=== PATIENT | female | born 1945 | race Caucasian/White ===

== ENCOUNTER 2019-03-13 12:33 | Inpatient (IN) ==
[2019-03-13] MEDS ORDERED: ONDANSETRON 4 MG/2 ML VIAL IV PRN (16:45)
[2019-03-13] MEDS ORDERED: guaiFENesin/DM ER 600-30 MG TABLET PO PRN (16:45)
[2019-03-13] MEDS ORDERED: DEXTROSE 50% 25 GM/50 ML VIAL IV PRN (16:45)
[2019-03-13] MEDS ORDERED: GLUCAGON 1 MG VIAL IM PRN (16:45)
[2019-03-13] MEDS ORDERED: COLCHICINE 0.6 MG CAPSULE PO PRN (16:51)
[2019-03-13] MEDS ORDERED: CLOPIDOGREL 300 MG TABLET PO ONE (17:28)
[2019-03-13 18:48] LABS: Basophils % 0.6 % (0.0-0.8); Eosinophils # 0.1 10*3/uL (0.0-0.87); Eosinophils % 0.8 % (0.00-10.9); Hematocrit 35.1 VOL% (35.7-47.0); Hemoglobin 11.6 GM/DL (12.0-16.0); Lymphocytes # 2.4 10*3/uL (1.4-4.0); Lymphocytes % 38.2 % (21.3-54.2); Mean Corpuscular Volume 92.6 FL (87-102); Mean Platelet Volume 12.4 FL (9.6-12.0); Monocytes % 9.3 % (1.7-12.7); Neutrophils % 51.1 % (38.7-73.9); Platelet Count 167 T/CUMM (130-400); Red Blood Count 3.79 MC/CUMM (3.8-5.5); Red Cell Distribution Width 12.6 % (9.3-17.3); White Blood Count 6.3 T/CUMM (4-12)
[2019-03-13 19:01] LABS: Calcium 9.6 MG/DL (8.5-10.1); Osmolality,Calculated 285.7 MOS/KG (273-304)
[2019-03-13 19:02] LABS: PT Patient Result 10.5 SECS (9.6-12.2); Partial Thromboplastin Time 24.6 SECS (20.8-36.0)
[2019-03-13] MEDS ORDERED: ENOXAPARIN 30 MG/0.3 ML SYRINGE SUBCUT SCH (21:00)
[2019-03-13] MEDS: ATORVASTATIN 40 MG TABLET PO SCH (21:04)
[2019-03-13] MEDS: ZALEPLON 5 MG CAPSULE PO PRN (21:04)
[2019-03-13] MEDS: ENOXAPARIN 100 MG/ML SYRINGE SUBCUT SCH (21:04)
[2019-03-13] MEDS: PREGABALIN 75 MG CAPSULE PO SCH (21:04)
[2019-03-13] MEDS: INSULIN REGULAR 100 UNIT/ML SUBCUT SCH (21:09)
[2019-03-14 05:36] LABS: Basophils # 0.1 10*3/uL (0.0-0.2); Basophils % 1.2 % (0.0-0.8); Eosinophils # 0.1 10*3/uL (0.0-0.87); Eosinophils % 2.3 % (0.00-10.9); Hematocrit 33.2 VOL% (35.7-47.0); Hemoglobin 10.8 GM/DL (12.0-16.0); Lymphocytes # 2.1 10*3/uL (1.4-4.0); Lymphocytes % 49.5 % (21.3-54.2); Mean Corpuscular HGB Conc 32.5 GM/DL (32-36); Mean Corpuscular Volume 92.5 FL (87-102); Mean Platelet Volume 12.7 FL (9.6-12.0); Monocytes % 10.2 % (1.7-12.7); Neutrophils % 36.8 % (38.7-73.9); Platelet Count 158 T/CUMM (130-400); Red Blood Count 3.59 MC/CUMM (3.8-5.5); Red Cell Distribution Width 12.7 % (9.3-17.3); White Blood Count 4.3 T/CUMM (4-12)
[2019-03-14 06:00] LABS: Calcium 9.2 MG/DL (8.5-10.1); Osmolality,Calculated 294.8 MOS/KG (273-304)
[2019-03-14 06:01] LABS: Atypical Lymphocytes Few; Eosinophils 5 % (0-10); Hypochromasia 1+; Lymphocytes 44 % (20-55); Platelet Estimate Adequate; Segmented Neutrophils 45 % (50-85); Total Cells Counted 100
[2019-03-14 06:26] LABS: Risk Ratio 7.36; Thyroid Stimulating Hormone 1.09 uIU/ml (0.358-3.74); VLDL CHOLESTEROL 74.2 MG/DL
[2019-03-14] MEDS: ASPIRIN EC 81 MG TABLET PO SCH (09:30)
[2019-03-14] MEDS: METOPROLOL SUCCINATE XL 25 MG TABLET PO SCH (09:30)
[2019-03-14] MEDS: PANTOPRAZOLE 40 MG TABLET PO SCH (09:30)
[2019-03-14] MEDS: VENLAFAXINE XR 75 MG CAPSULE PO SCH (09:30)
[2019-03-14] MEDS: PREGABALIN 75 MG CAPSULE PO SCH ×2 (09:30→22:10)
[2019-03-14] MEDS: CHOLECALCIFEROL 1,000 UNIT TABLET PO SCH (09:30)
[2019-03-14] MEDS: CLOPIDOGREL 75 MG TABLET PO SCH (09:30)
[2019-03-14] MEDS: MAGNESIUM OXIDE 400 MG TABLET PO SCH (09:30)
[2019-03-14] MEDS: POLYETHYLENE GLYCOL POWDER 17 GM PACK PO SCH (09:30)
[2019-03-14] MEDS: MULTIVITAMIN (CENTRUM) TABLET PO SCH (09:30)
[2019-03-14] MEDS: INSULIN REGULAR 100 UNIT/ML SUBCUT SCH ×4 (10:18→22:09)
[2019-03-14] MEDS: ENOXAPARIN 100 MG/ML SYRINGE SUBCUT SCH ×2 (13:03→21:02)
[2019-03-14] MEDS: FUROSEMIDE 40 MG/4 ML VIAL IV SCH ×2 (13:03→16:32)
[2019-03-14] MEDS ORDERED: diphenhydrAMINE CAP 25 MG CAPSULE PO ONE (14:03)
[2019-03-14] MEDS: ZALEPLON 5 MG CAPSULE PO PRN (22:10)
[2019-03-14] MEDS: ATORVASTATIN 40 MG TABLET PO SCH ×2 (22:10→22:13)
[2019-03-15] MEDS: INSULIN REGULAR 100 UNIT/ML SUBCUT SCH ×4 (08:01→21:50)
[2019-03-15] MEDS: VENLAFAXINE XR 75 MG CAPSULE PO SCH (08:15)
[2019-03-15] MEDS: METOPROLOL SUCCINATE XL 25 MG TABLET PO SCH (08:16)
[2019-03-15] MEDS: CLOPIDOGREL 75 MG TABLET PO SCH (08:16)
[2019-03-15] MEDS: PANTOPRAZOLE 40 MG TABLET PO SCH (08:16)
[2019-03-15] MEDS: CHOLECALCIFEROL 1,000 UNIT TABLET PO SCH (08:16)
[2019-03-15] MEDS: PREGABALIN 75 MG CAPSULE PO SCH ×2 (08:16→21:51)
[2019-03-15] MEDS: MAGNESIUM OXIDE 400 MG TABLET PO SCH (08:16)
[2019-03-15] MEDS: MULTIVITAMIN (CENTRUM) TABLET PO SCH (08:16)
[2019-03-15] MEDS: ASPIRIN EC 81 MG TABLET PO SCH (08:16)
[2019-03-15] MEDS ORDERED: diphenhydrAMINE CAP 25 MG CAPSULE PO ONE (08:30)
[2019-03-15 08:34] LABS: Calcium 9.8 MG/DL (8.5-10.1); Osmolality,Calculated 285.7 MOS/KG (273-304)
[2019-03-15] MEDS ORDERED: HEPARIN/NACL 0.9% 2 UNITS/ML 1,000 ML IV ONE (08:49)
[2019-03-15] MEDS ORDERED: LIDOCAINE 1% 20 ML VIAL ONE (08:49)
[2019-03-15] MEDS ORDERED: HEPARIN/NACL 0.9% 2 UNITS/ML 500 ML IV ONE (08:58)
[2019-03-15] MEDS ORDERED: MIDAZOLAM 2 MG/2 ML VIAL ONE (09:01)
[2019-03-15] MEDS ORDERED: fentaNYL 100 MCG/2 ML VIAL ONE (09:01)
[2019-03-15] MEDS ORDERED: NITROGLYCERIN DRIP 50 MG/250 ML BOTTLE IV ONE (09:42)
[2019-03-15] MEDS ORDERED: HEPARIN 5,000 UNIT/1 ML VIAL ONE (09:42)
[2019-03-15] MEDS ORDERED: CLOPIDOGREL 300 MG TABLET ONE (09:44)
[2019-03-15] MEDS ORDERED: CLOPIDOGREL 75 MG TABLET ONE (10:33)
[2019-03-15] MEDS ORDERED: SODIUM CHLORIDE 0.9% 1,000 ML IV SCH (11:00)
[2019-03-15] MEDS ORDERED: MORPHINE 10 MG/1 ML VIAL ONE (11:05)
[2019-03-15] MEDS ORDERED: LIDOCAINE 1%/EPI INJ 20 ML VIAL ONE (11:30)
[2019-03-15 12:19] LABS: Apearance,Urine CLEAR (Clear); Bilirubin,Urine Negative (Negative); Blood, Urine Small mg/dL (Negative); Glucose,Urine (UA) 50 mg/dL (Negative); Ketones,Urine Negative (Negative); Mucus,Urine Occasional /LPF (Occasional); Nitrite,Urine Negative (Negative); Protein,Urine 30 MG/DL; RBC,Urine 4 /HPF (0-4); Squamous Epithelial Cell,Urine Occasional /HPF (0-10); Urine Color Yellow (Yellow); Urine Specific Gravity 1.045 (1.001-1.035); Urine Urobilinogen < 2.0 EU/DL (0.2-1.0); WBC,Urine 2 /HPF (0-6)
[2019-03-15] MEDS: POLYETHYLENE GLYCOL POWDER 17 GM PACK PO SCH (12:21)
[2019-03-15 12:34] LABS: Basophils # 0.1 10*3/uL (0.0-0.2); Basophils % 0.6 % (0.0-0.8); Eosinophils # 0.1 10*3/uL (0.0-0.87); Eosinophils % 1.2 % (0.00-10.9); Hematocrit 37.2 VOL% (35.7-47.0); Hemoglobin 12.3 GM/DL (12.0-16.0); Immature Granulocytes % 0.2 %; Immature Granulocytes Absolute 0.02 #; Lymphocytes # 4.4 10*3/uL (1.4-4.0); Lymphocytes % 54.4 % (21.3-54.2); Mean Corpuscular HGB Conc 33.1 GM/DL (32-36); Mean Corpuscular Volume 92.1 FL (87-102); Mean Platelet Volume 12.2 FL (9.6-12.0); Monocytes % 10.1 % (1.7-12.7); Neutrophils % 33.5 % (38.7-73.9); Platelet Count 180 T/CUMM (130-400); Red Blood Count 4.04 MC/CUMM (3.8-5.5); Red Cell Distribution Width 12.8 % (9.3-17.3)
[2019-03-15] MEDS: FUROSEMIDE 40 MG/4 ML VIAL IV SCH ×2 (12:34→17:08)
[2019-03-15] MEDS: amLODIPine 5 MG TABLET PO SCH (12:34)
[2019-03-15] MEDS: ENOXAPARIN 100 MG/ML SYRINGE SUBCUT SCH (12:42)
[2019-03-15 13:08] LABS: Band Neutrophils 2 % (0-10); Eosinophils 1 % (0-10); Lymphocytes 52 % (20-55); Segmented Neutrophils 34 % (50-85); Total Cells Counted 100
[2019-03-15 13:09] LABS: Anisocytosis 1+; Platelet Estimate Normal
[2019-03-15] MEDS: ALBUTEROL/IPRATROPIUM 3 ML NEB RESP TX SCH (20:57)
[2019-03-15] MEDS: ATORVASTATIN 40 MG TABLET PO SCH (21:51)
[2019-03-16] MEDS: ALBUTEROL/IPRATROPIUM 3 ML NEB RESP TX SCH ×7 (00:51→23:50)
[2019-03-16 04:02] LABS: Basophils # 0.1 10*3/uL (0.0-0.2); Basophils % 0.6 % (0.0-0.8); Eosinophils # 0.2 10*3/uL (0.0-0.87); Hematocrit 34.8 VOL% (35.7-47.0); Hemoglobin 11.4 GM/DL (12.0-16.0); Immature Granulocytes % 0.2 %; Immature Granulocytes Absolute 0.02 #; Lymphocytes # 2.2 10*3/uL (1.4-4.0); Lymphocytes % 26.1 % (21.3-54.2); Mean Corpuscular HGB Conc 32.8 GM/DL (32-36); Mean Corpuscular Volume 94.1 FL (87-102); Mean Platelet Volume 12.7 FL (9.6-12.0); Monocytes % 12.4 % (1.7-12.7); Neutrophils % 58.7 % (38.7-73.9); Platelet Count 167 T/CUMM (130-400); White Blood Count 8.4 T/CUMM (4-12)
[2019-03-16 04:17] LABS: Calcium 9.1 MG/DL (8.5-10.1)
[2019-03-16] MEDS ORDERED: ENOXAPARIN 40 MG/0.4 ML SYRINGE SUBCUT SCH (04:43)
[2019-03-16] MEDS: PREGABALIN 75 MG CAPSULE PO SCH ×3 (05:11→20:33)
[2019-03-16] MEDS: FUROSEMIDE 40 MG/4 ML VIAL IV SCH (09:12)
[2019-03-16] MEDS: MAGNESIUM OXIDE 400 MG TABLET PO SCH (09:20)
[2019-03-16] MEDS: VENLAFAXINE XR 75 MG CAPSULE PO SCH (09:20)
[2019-03-16] MEDS: MULTIVITAMIN (CENTRUM) TABLET PO SCH (09:20)
[2019-03-16] MEDS: CLOPIDOGREL 75 MG TABLET PO SCH (09:21)
[2019-03-16] MEDS: amLODIPine 5 MG TABLET PO SCH (09:21)
[2019-03-16] MEDS: CHOLECALCIFEROL 1,000 UNIT TABLET PO SCH (09:21)
[2019-03-16] MEDS: ACETAMINOPHEN 325 MG TABLET PO PRN (09:21)
[2019-03-16] MEDS: METOPROLOL SUCCINATE XL 25 MG TABLET PO SCH (09:21)
[2019-03-16] MEDS: PANTOPRAZOLE 40 MG TABLET PO SCH (09:21)
[2019-03-16] MEDS: POLYETHYLENE GLYCOL POWDER 17 GM PACK PO SCH (09:21)
[2019-03-16] MEDS: ASPIRIN EC 81 MG TABLET PO SCH (09:21)
[2019-03-16] MEDS: INSULIN REGULAR 100 UNIT/ML SUBCUT SCH ×4 (09:22→20:31)
[2019-03-16] MEDS ORDERED: SODIUM CHLORIDE 0.9% 1,000 ML IV SCH (16:30)
[2019-03-16] MEDS: miSOPROStoL 200 MCG TABLET PO SCH ×2 (16:57→20:33)
[2019-03-16] MEDS: ATORVASTATIN 40 MG TABLET PO SCH (20:33)
[2019-03-17] MEDS: ALBUTEROL/IPRATROPIUM 3 ML NEB RESP TX SCH ×5 (03:51→19:07)
[2019-03-17 05:10] LABS: Basophils % 0.6 % (0.0-0.8); Eosinophils # 0.1 10*3/uL (0.0-0.87); Eosinophils % 1.8 % (0.00-10.9); Hematocrit 30.1 VOL% (35.7-47.0); Hemoglobin 9.9 GM/DL (12.0-16.0); Immature Granulocytes % 0.3 %; Immature Granulocytes Absolute 0.02 #; Lymphocytes # 2.9 10*3/uL (1.4-4.0); Lymphocytes % 40.9 % (21.3-54.2); Mean Corpuscular HGB Conc 32.9 GM/DL (32-36); Mean Corpuscular Volume 93.2 FL (87-102); Mean Platelet Volume 12.7 FL (9.6-12.0); Monocytes % 10.7 % (1.7-12.7); Neutrophils % 45.7 % (38.7-73.9); Platelet Count 141 T/CUMM (130-400); Red Blood Count 3.23 MC/CUMM (3.8-5.5); Red Cell Distribution Width 13.1 % (9.3-17.3); White Blood Count 7.2 T/CUMM (4-12)
[2019-03-17 05:38] LABS: Calcium 8.5 MG/DL (8.5-10.1); Osmolality,Calculated 284.2 MOS/KG (273-304)
[2019-03-17] MEDS: ENOXAPARIN 30 MG/0.3 ML SYRINGE SUBCUT SCH (05:39)
[2019-03-17] MEDS ORDERED: MAGNESIUM SULF RIDER 4 GM in PREMIX 1 EACH IV PRN (07:56)
[2019-03-17] MEDS: PREGABALIN 75 MG CAPSULE PO SCH ×2 (09:10→20:56)
[2019-03-17] MEDS: MAGNESIUM OXIDE 400 MG TABLET PO SCH (09:11)
[2019-03-17] MEDS: MULTIVITAMIN (CENTRUM) TABLET PO SCH (09:11)
[2019-03-17] MEDS: CHOLECALCIFEROL 1,000 UNIT TABLET PO SCH (09:11)
[2019-03-17] MEDS: VENLAFAXINE XR 75 MG CAPSULE PO SCH (09:11)
[2019-03-17] MEDS: miSOPROStoL 200 MCG TABLET PO SCH ×4 (09:11→20:56)
[2019-03-17] MEDS: ASPIRIN EC 81 MG TABLET PO SCH (09:11)
[2019-03-17] MEDS: POLYETHYLENE GLYCOL POWDER 17 GM PACK PO SCH (09:12)
[2019-03-17] MEDS: METOPROLOL SUCCINATE XL 25 MG TABLET PO SCH (09:12)
[2019-03-17] MEDS: PANTOPRAZOLE 40 MG TABLET PO SCH (09:12)
[2019-03-17] MEDS: CLOPIDOGREL 75 MG TABLET PO SCH (09:12)
[2019-03-17] MEDS: amLODIPine 5 MG TABLET PO SCH (09:12)
[2019-03-17] MEDS: INSULIN REGULAR 100 UNIT/ML SUBCUT SCH ×4 (09:16→20:56)
[2019-03-17] MEDS: SODIUM CHLORIDE 23.4% CONC INJ 38.5 MEQ, SODIUM BICARB INJ 50 MEQ in STERILE WATER INJ ... IV SCH ×2 (11:32→20:54)
[2019-03-17] MEDS ORDERED: MORPHINE 4 MG/1 ML VIAL IV ONE (13:48)
[2019-03-17] MEDS: MAGNESIUM SULF RIDER 2 GM in PREMIX 1 EACH IV PRN (17:19)
[2019-03-17] MEDS: ATORVASTATIN 40 MG TABLET PO SCH (20:56)
[2019-03-17] MEDS: ACETAMINOPHEN 325 MG TABLET PO PRN (22:35)
[2019-03-18] MEDS: ALBUTEROL/IPRATROPIUM 3 ML NEB RESP TX SCH ×6 (00:27→19:38)
[2019-03-18] MEDS: ENOXAPARIN 30 MG/0.3 ML SYRINGE SUBCUT SCH (05:18)
[2019-03-18 05:25] LABS: Basophils % 0.3 % (0.0-0.8); Eosinophils # 0.2 10*3/uL (0.0-0.87); Eosinophils % 3.4 % (0.00-10.9); Hematocrit 27.4 VOL% (35.7-47.0); Hemoglobin 8.9 GM/DL (12.0-16.0); Immature Granulocytes % 0.2 %; Immature Granulocytes Absolute 0.01 #; Lymphocytes # 2.5 10*3/uL (1.4-4.0); Lymphocytes % 41.7 % (21.3-54.2); Mean Corpuscular HGB Conc 32.5 GM/DL (32-36); Mean Corpuscular Volume 93.2 FL (87-102); Mean Platelet Volume 13.1 FL (9.6-12.0); Monocytes % 10.7 % (1.7-12.7); Neutrophils % 43.7 % (38.7-73.9); Platelet Count 134 T/CUMM (130-400); Red Blood Count 2.94 MC/CUMM (3.8-5.5); White Blood Count 5.9 T/CUMM (4-12)
[2019-03-18 06:05] LABS: Albumin 2.8 G/DL (3.4-5.0); Calcium 8.4 MG/DL (8.5-10.1); Osmolality,Calculated 278.5 MOS/KG (273-304)
[2019-03-18] MEDS: SODIUM CHLORIDE 23.4% CONC INJ 38.5 MEQ, SODIUM BICARB INJ 50 MEQ in STERILE WATER INJ ... IV SCH (16:51)
[2019-03-18] MEDS: INSULIN REGULAR 100 UNIT/ML SUBCUT SCH ×3 (16:51→21:33)
[2019-03-18] MEDS: MAGNESIUM OXIDE 400 MG TABLET PO SCH (16:52)
[2019-03-18] MEDS: MULTIVITAMIN (CENTRUM) TABLET PO SCH (16:52)
[2019-03-18] MEDS: VENLAFAXINE XR 75 MG CAPSULE PO SCH (16:52)
[2019-03-18] MEDS: POLYETHYLENE GLYCOL POWDER 17 GM PACK PO SCH (16:52)
[2019-03-18] MEDS: miSOPROStoL 200 MCG TABLET PO SCH ×3 (16:52→21:33)
[2019-03-18] MEDS: PREGABALIN 75 MG CAPSULE PO SCH ×2 (16:52→21:34)
[2019-03-18] MEDS: PANTOPRAZOLE 40 MG TABLET PO SCH (16:53)
[2019-03-18] MEDS: CHOLECALCIFEROL 1,000 UNIT TABLET PO SCH (16:53)
[2019-03-18] MEDS: amLODIPine 5 MG TABLET PO SCH (16:53)
[2019-03-18] MEDS: METOPROLOL SUCCINATE XL 25 MG TABLET PO SCH (16:53)
[2019-03-18] MEDS: CLOPIDOGREL 75 MG TABLET PO SCH (16:53)
[2019-03-18] MEDS: ASPIRIN EC 81 MG TABLET PO SCH (16:54)
[2019-03-18] MEDS: ATORVASTATIN 40 MG TABLET PO SCH (21:34)
[2019-03-19] MEDS: ALBUTEROL/IPRATROPIUM 3 ML NEB RESP TX SCH ×4 (00:25→10:48)
[2019-03-19] MEDS: ENOXAPARIN 30 MG/0.3 ML SYRINGE SUBCUT SCH (05:37)
[2019-03-19] MEDS: SODIUM CHLORIDE 23.4% CONC INJ 38.5 MEQ, SODIUM BICARB INJ 50 MEQ in STERILE WATER INJ ... IV SCH (05:37)
[2019-03-19 05:46] LABS: Albumin 2.7 G/DL (3.4-5.0); Calcium 8.6 MG/DL (8.5-10.1); Osmolality,Calculated 280.2 MOS/KG (273-304)
[2019-03-19] MEDS: VENLAFAXINE XR 75 MG CAPSULE PO SCH (09:05)
[2019-03-19] MEDS: PREGABALIN 75 MG CAPSULE PO SCH (09:05)
[2019-03-19] MEDS: ASPIRIN EC 81 MG TABLET PO SCH (09:06)
[2019-03-19] MEDS: amLODIPine 5 MG TABLET PO SCH (09:06)
[2019-03-19] MEDS: miSOPROStoL 200 MCG TABLET PO SCH (09:06)
[2019-03-19] MEDS: PANTOPRAZOLE 40 MG TABLET PO SCH (09:06)
[2019-03-19] MEDS: MAGNESIUM OXIDE 400 MG TABLET PO SCH (09:06)
[2019-03-19] MEDS: MULTIVITAMIN (CENTRUM) TABLET PO SCH (09:06)
[2019-03-19] MEDS: POLYETHYLENE GLYCOL POWDER 17 GM PACK PO SCH (09:07)
[2019-03-19] MEDS: CHOLECALCIFEROL 1,000 UNIT TABLET PO SCH (09:07)
[2019-03-19] MEDS: METOPROLOL SUCCINATE XL 25 MG TABLET PO SCH (09:07)
[2019-03-19] MEDS: CLOPIDOGREL 75 MG TABLET PO SCH (09:07)
[2019-03-19] MEDS: INSULIN REGULAR 100 UNIT/ML SUBCUT SCH (09:07)
[2019-03-19] MEDS: MAGNESIUM SULF RIDER 2 GM in PREMIX 1 EACH IV PRN (09:14)
[2019-03-19 12:17] VITALS: BP 141/68
== END 2019-03-19 13:40 | disposition home health service (06) | DRG 246 ==
LOC: N.TELEN → SUPCPDRO 14:53 → SUATTDRO 14:53
PROVIDERS: ADMIT Internal Medicine; ATTEND Hospitalist
PROC: CLCCHCL (ICD-10-PCS; 2019-03-15 09:15)